=== PATIENT | male | born 1995 ===

== ENCOUNTER 2017-09-16 12:03 | Emergency (ER) | payer OTHER ==
[2017-09-16 12:26] VITALS: BP 125/78
--- NOTE | 2017-09-16 12:27 | EDPHY ---
H & P Time Seen by Provider: 09/16/17 12:18 HPI/ROS: CHIEF COMPLAINT: Right ear pain for 2 days HISTORY OF PRESENT ILLNESS: Sore throat for about a week. Developed right ear pain for the last 2 days with some decreased hearing. Taking ibuprofen without much improvement. No liquid drainage. REVIEW OF SYSTEMS: No headache or fevers, no trouble breathing or swallowing. PAST MEDICAL HISTORY: Negative General Appearance: Alert and conversant, cooperative. No external mastoid or facial swelling or tenderness. Normal pharynx without trismus. External canal on the right side is normal with erythema and bulging of the right tympanic membrane. Left ear canal and tympanic membrane is normal. Decreased hearing to the right ear. Emergency Department course/MDM: Likely acute otitis media. Oral amoxicillin and decongestant, Tylenol ibuprofen , ENT follow-up within the week. Smoking Status: Former smoker Constitutional: Initial Vital Signs Temperature (C) 36.5 C 09/16/17 12:04 Heart Rate 79 09/16/17 12:04 Respiratory Rate 16 09/16/17 12:04 Blood Pressure 138/72 H 09/16/17 12:04 O2 Sat (%) 97 09/16/17 12:04 O2 Delivery Mode Room Air Allergies/Adverse Reactions: No Known Allergies Allergy (Unverified 09/16/17 12:08) Home Medications: Medication Instructions Recorded Amoxicillin Trihydrate 500 mg PO Q8 #30 cap 09/16/17 [Amoxicillin 500mg capsule] MDM/Departure - Depart Disposition: Home, Routine, Self-Care Clinical Impression: Otitis media of right ear Qualifiers: Otitis media type: unspecified Qualified Code(s): H66.91 - Otitis media, unspecified, right ear Condition: Good Instructions: Serous Otitis Media (ED) Additional Instructions: Use qozn-yxv-oyecxhs decongestant such as Sudafed for the next 2-3 days, oral Tylenol up to 650 mg by mouth every 6-8 hours and/or ibuprofen up to 600 mg by mouth every 8 hr as needed for the next 2-3 days as well. Prescriptions: Amoxicillin Trihydrate [Amoxicillin 500mg capsule] 500 mg PO Q8 #30 cap Referrals: Jori Galindo MD [Medical Doctor] - As per Instructions
== END 2017-09-16 12:30 | disposition home or self-care (01) ==
DX: H66.91 Otitis media, unspecified, right ear (principal); Z87.891 Personal history of nicotine dependence